=== PATIENT | female | born 2000 | race Caucasian/White ===

== ENCOUNTER 2019-11-22 11:11 | Outpatient (CLI) | payer OTHER, SELFPAY ==
--- NOTE | ~2019-11-22 | US_ITS ---
US abdomen limited DATE: 11/22/2019 11:44 INDICATION: Epigastric abdominal pain TECHNIQUE: Real-time imaging and color flow imaging of the abdomen, Doppler analysis COMPARISON: None FINDINGS: The gallbladder wall measures up to 3.3 mm thickness, borderline thickened. No gallstones o r abnormal pericholecystic fluid collection are noted. Negative sonographic Marrero's sign. The common bile duct measures 2.4 mm, normal. No hepatic or pancreatic space-occupying mass lesion. Normal hepatic portal venous flow direction. IMPRESSION: Borderline thickening of the gallbladder wall; no cholelithiasis is demonstrated Reviewed, dictated and finalized at [facility]. Reviewed, dictated and finalized at [facility].
== END 2019-11-22 11:12 | disposition home or self-care (01) ==
LOC: ANHIMG 11:12
PROVIDERS: PCP Family Medicine; Visit Provider Physician Assistant
DX: R10.9 Unspecified abdominal pain (principal)
CPT/HCPCS: 76705